=== PATIENT | male | born 1965 | race African-American/Black ===

== ENCOUNTER → 2016-11-26 07:56 | Outpatient (CLI) | payer BC | END | disposition home or self-care (01) | LOC: D.US 11-23 08:00 | DX: R10.9 Unspecified abdominal pain (principal) ==

== ENCOUNTER → 2017-11-08 13:25 | Outpatient (CLI) | payer BC ==
[~2017-11-08 13:25] MED LIST: HYDROCODONE-APA1 TAB PO; LISINOPRIL10 MG PO; LISINOPRIL2.5 MG PO; NORVASC10 MG; NORVASC10 MG PO; ROCEPHIN 2 GM/D52 G1 IV
[2017-11-08 18:05] LABS: NEUT - BF 100 %
[2017-11-09 01:16] VITALS: BMI 34.2
== END | disposition home or self-care (01) ==
LOC: D.LABREF 13:25
PROVIDERS: Orthopaedic Surgery
DX: M25.562 Pain in left knee (principal)

== ENCOUNTER 2017-11-08 20:32 | Inpatient (IN) | payer BC ==
[~2017-11-08] VITALS: Ht 172.7 cm; Wt 102.3 kg
--- NOTE | ~2017-11-08 | EC ---
PATIENT:LEONILA RAGSDALE DATE OF SERVICE: 11/08/17 SEX: M MEDICAL RECORD: [id number] DATE OF : 67 LOCATION:[facility] AGE OF PATIENT: 52 ADMISSION DATE: 11/08/17 REFERRING PHYSICIAN: INTERPRETING PHYSICIAN: SOPHIE TAYLOR MD ECHOCARDIOGRAM REPORT ECHO CHARGES 4 ECHO COMPLETE Date: 11/10 CLINICAL DIAGNOSIS: EKG CHANGES ECHOCARDIOGRAPHIC MEASUREMENTS (adult normal given) AC root (d.<3.7cm) 4.0 cm LV Septum d (<1.2 cm> 1.3 cm Valve Excursion 2.5 cm LV Septum (systole) 2.0 cm Left Atria (s.<4.0cm> 4.2 cm LVPW d(<1.2cm) 1.4 cm RV (d.<2.3cm) 2.7 cm LVPW (sytole) 2.2 cm LV diastole(<5.6CM) 7.0 cm MV E-F(>70mm/sec) cm LV systole 4.0 cm LVOT Diameter 2.2 cm MV exc.(>10mm) cm Est.ejection fraction (50-75%) % DOPPLER: LVIT cm/sec A 56.0 cm/sec E 80.0 cm/sec LA cm/sec RVSP 23.4 mmHg LVOT 127 cm/sec AOP1/2T m/s Asc. Ao 136 cm/sec RVOT 72.0 cm/sec RA cm/sec PA 102 cm/sec AV Gradient Peak 7.4 mmHg AV Mean 3.6 mmHg AV Area 3.7 cm MV Gradient Peak 3.1 mmHg MV Mean 1.1 mmHg MV Area cm COMMENTS: Watch Assembly Inspector: 1 MIRTA PRESTONOE Demographic Analyst: 4 Dr. Taylor TAPE# PACS Pericardial Effusion N DATE OF SERVICE: PROCEDURE: Transthoracic echocardiogram. FINDINGS: 1. Left ventricle is normal size, shape, structure, and function, ejection fraction 60%. 2. The left atrium is normal. 3. The aortic valve is normal. 4. The mitral valve is normal. ECHOCARDIOGRAM REPORT [id number] LEONILA RAGSDALE 5. The tricuspid valve is normal. 6. The right ventricle is normal. The right atrium is normal. 7. The pulmonic valve is normal. 8. Inflow characteristics are normal. CONCLUSIONS: This is a normal echocardiogram for the patient's stated age. TRANSINT:[id number] Voice Confirmation ID: [id number] DOCUMENT ID: [id number] SOPHIE TAYLOR MD at 1702 CC: [id number] DICTATION DATE: 11/11/17 0748 CAMP ASSISTANT: 11/11/17 1115 ADM IN [facility] [address] [id number]
--- NOTE | ~2017-11-08 | HP ---
PATIENT: LEONILA RAGSDALE MEDICAL RECORD: [id number] ACCOUNT: [id number] LOCATION:[facility] : 67 ADMISSION DATE: 11/08/17 HISTORY AND PHYSICAL EXAMINATION DATE OF ADMISSION: 11/08/2017 CHIEF COMPLAINT: Pain in the left knee. HISTORY OF PRESENT ILLNESS: The patient is a 52-year-old -[place] male, who states that in December of this past year, he developed redness as well as swelling in the left knee. This over time did resolve, but over the past week, he has had the recurrence of the swelling as well as the redness, heat, unable to ambulate. He states he worked Saturday and Saturday, was off Saturday, took off and Saturday. He is seen routinely by Dr. Pak. Dr. Pak did see the patient yesterday, referred him to orthopedist. Apparently, he had left knee aspiration, was found later to go to the Emergency Room for possible diagnosis of left septic knee. PAST MEDICAL HISTORY: His past history is significant that he has had hypertension. He has got chronic hepatitis C, hyperlipidemia, secondary polycythemia, obstructive sleep apnea, BPH. FAMILY HISTORY: Father recently at 78 years of age from heart disease. Mother apparently is living, is on home O2. SOCIAL HISTORY: Born and raised in [place]. He has lived in [place] 20+ years. 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 He is not . He is the father of one. ALLERGIES: None. SOCIAL HISTORY: The patient states he is a pack a day smoker and has been so. He had been a drinker until 1998, at which time he had stopped. MEDICATIONS: Include amlodipine 10 mg 1 p.o. every day, hydrocodone 10/325 which was started on the 25th one p.o. every 4 hours p.r.n. pain, lisinopril 10 mg 1 p.o. every day, ProAir 90 mcg 2 puffs every 4 hours p.r.n. shortness of breath, sildenafil 100 mg 1 hour prior to intercourse. REVIEW OF SYSTEMS: CONSTITUTIONAL: He denies any headaches, seizure, or syncope. He denies change in visual or auditory acuity. PULMONARY: He denies any shortness of breath, cough or congestion, history of TB, asthma or bronchitis. CARDIOVASCULAR: He has had no chest pain, palpitation, PND or orthopnea. GASTROINTESTINAL: No chronic nausea, vomiting, melena or hematochezia. GENITOURINARY: No urgency, frequency, or dysuria. PHYSICAL EXAMINATION: GENERAL: He is alert. He is oriented times 3. Very pleasant male, who is in no acute distress. HEENT: Unremarkable. NECK: Supple. There is no adenopathy. HEART: Has a regular rate and rhythm without any murmurs, gallops, or rubs. HISTORY AND PHYSICAL [id number] LEONILA RAGSDALE LUNGS: Clear. ABDOMEN: Soft. Bowel sounds are positive. No organomegaly. EXTREMITIES: The patient does have edema as well as warmth over the left knee with limited range of motion. There is no obvious abscess that can be appreciated. No puncture wound. ASSESSMENT: 1. Probable septic knee, status post left knee aspiration, awaiting cultures. 2. Hypertension, obesity. PLAN: The patient is admitted, started on vancomycin as well as Zosyn. Orthopedic consultation is obtained. TRANSINT:[id number] Voice Confirmation ID: [id number] DOCUMENT ID: [id number] SHYAM MERCHANT MD at 1005 CC: [id number] DICTATION DATE: 11/09/17 0747 PROJECT ADMINISTRATOR: 11/09/17 0835 ADM IN [id number] [place] [address]
--- NOTE | ~2017-11-08 | MORECARE ---
CASE MANAGEMENT DISCHARGE SUMMARY PATIENT: LEONILA RAGSDALE UNIT: [id number] ADM DATE: 11/08/17 AGE: 52 : 67 SEX: M ROOM/BED: D.2207 AUTHOR: CASE, MICA MACHINE OPERATOR PHYSICIAN: REFERRING PHYSICIAN: EUNICE CAMILO DO DATE OF SERVICE: 11/08/17 Discharge Plan Patient Name: LEONILA RAGSDALE [facility] [facility] 1965 Planned Disposition: Home with Home Health Anticipated Discharge Date: Discharge Date: Expected LOS: Initial Reviewer: [email or web address] Initial Review Date: 11/08/2017 Generated: 11/13/17 1:51 pm DCPIA - Discharge Planning Initial Assessment Updated by [email or web address]: Dulce Maria Sorenson on 11/13/17 12:49 pm * Is the patient Alert and Oriented? Yes * How many steps to enterexit or inside your home? * PCP [facility] * [facility] * Preadmission Environment Home with Family * ADLs Independent * Equipment Crutch * List name and contact numbers for known caregivers / representatives who currently or will assist patient after discharge: JUANCHO KHAN () * Verbal permission to speak to the caregivers and representatives has been obtained from the patient. Yes * Community resources currently utilized None * Additional services required to return to the preadmission environment? Yes * Can the patient safely return to the preadmission environment? Yes * Has this patient been hospitalized within the prior 30 days at any hospital? No Patient Name: LEONILA RAGSDALE Page [id number] All edits/amendments must be made on the electronic document DICTATION DATE: 11/13/17 1250 NURSE DISCHARGE: 11/13/17 1250 RPT#: [id number] DC DATE: STATUS: ADM IN [facility] [address] [place] [address] END OF REPORT
[2017-11-08] MEDS ORDERED: LISINOPRIL2.5 MG PO (21:01)
[2017-11-08] MEDS ORDERED: NORVASC10 MG (21:01)
[2017-11-08 21:33] LABS: BASOPHILS 0.2 % (0-2); EOSINOPHILS 4.9 % (0-7); HEMATOCRIT 42.1 % (42.0-54.0); HEMOGLOBIN 14.5 g/dL (13.5-17.5); IMMATURE GRANULOCYTES 0.2 % (0-5); LYMPHOCYTES 35.9 % (15-50); MCH 26.6 pg (26.0-34.0); MCHC 34.4 g/dL (31.0-37.0); MCV 77.2 fL (80.0-100.0); MEAN PLATELET VOLUME 10.4 fL (7.4-10.4); NEUTROPHILS 47.8 % (40-80); RBC 5.45 10x6/uL (4.20-6.10); WBC 6.3 10x3/uL (4.8-10.8)
[2017-11-08 21:35] LABS: PLATELET COUNT 182 10x3/uL (130-400)
[2017-11-08 22:01] LABS: ALBUMIN 3.4 g/dL (3.4-5.0); ALKALINE PHOSPHATASE 54 U/L (46-116); ALT (SGPT) 22 U/L (10-68); BILIRUBIN - TOTAL 0.28 mg/dL (0.2-1.3); C-REACTIVE PROTEIN 15.7 mg/dL (0.0-0.9); CALC OSMOLALITY 279 mosm/kg (275-300); CALCIUM 8.8 mg/dL (8.5-10.1); CARBON DIOXIDE 28.9 mmol/L (21.0-32.0); CHLORIDE - SERUM 104 mmol/L (98-107); CREATININE - SERUM 1.1 mg/dL (0.6-1.3); GLUCOSE 121 mg/dL (74-106); PROTEIN - SERUM 7.4 g/dL (6.4-8.2); SODIUM 139 mmol/L (136-145); UREA NITROGEN 15 mg/dL (7-18); eGFR NON AFRICAN AMERICAN 75 mL/min (90-120)
[2017-11-09 01:16] VITALS: BP 119/83; Ht 172.7 cm; Wt 102.3 kg
[2017-11-09 04:57] VITALS: BP 108/64
[2017-11-09 08:49] VITALS: BP 129/81
[2017-11-09 14:41] VITALS: BP 140/101
[2017-11-09 16:57] VITALS: BP 98/66
[2017-11-09 19:00] LABS: CREATINE KINASE 394 UL (21-232)
[2017-11-09 19:07] LABS: TROPONIN-I < 0.017 ng/mL (0.000-0.060)
[2017-11-09 20:30] VITALS: BP 138/84
[2017-11-09 23:07] LABS: CKMB 1.1 U/L (0.0-3.6); CREATINE KINASE 337 UL (21-232)
[2017-11-09 23:09] LABS: TROPONIN-I < 0.017 ng/mL (0.000-0.060)
[2017-11-10 04:30] VITALS: BP 157/92
[2017-11-10 05:33] LABS: BASOPHILS 0.2 % (0-2); EOSINOPHILS 3.4 % (0-7); HEMATOCRIT 38.9 % (42.0-54.0); HEMOGLOBIN 12.8 g/dL (13.5-17.5); LYMPHOCYTES 29.1 % (15-50); MCH 25.7 pg (26.0-34.0); MCHC 32.9 g/dL (31.0-37.0); MCV 78.1 fL (80.0-100.0); MEAN PLATELET VOLUME 10.9 fL (7.4-10.4); NEUTROPHILS 59.3 % (40-80); PLATELET COUNT 196 10x3/uL (130-400); RBC 4.98 10x6/uL (4.20-6.10); RDW 15.7 % (11.5-14.5)
[2017-11-10 06:19] LABS: CALC OSMOLALITY 278 mosm/kg (275-300); CALCIUM 8.2 mg/dL (8.5-10.1); CHLORIDE - SERUM 102 mmol/L (98-107); CKMB 1.2 U/L (0.0-3.6); CREATINE KINASE 323 UL (21-232); CREATININE - SERUM 1.2 mg/dL (0.6-1.3); GLUCOSE 98 mg/dL (74-106); POTASSIUM - SERUM 4.5 mmol/L (3.5-5.1); SODIUM 139 mmol/L (136-145); UREA NITROGEN 14 mg/dL (7-18); eGFR NON AFRICAN AMERICAN 68 mL/min (90-120)
[2017-11-10 06:20] LABS: TROPONIN-I < 0.017 ng/mL (0.000-0.060)
[2017-11-10 09:10] VITALS: BP 119/74
[2017-11-10 14:32] VITALS: BP 128/77
[2017-11-10 17:00] VITALS: BP 114/69
[2017-11-10 21:05] VITALS: BP 139/94
[2017-11-11 05:05] LABS: BASOPHILS 0.1 % (0-2); EOSINOPHILS 3.4 % (0-7); HEMATOCRIT 37.8 % (42.0-54.0); HEMOGLOBIN 12.8 g/dL (13.5-17.5); LYMPHOCYTES 22.6 % (15-50); MCHC 33.9 g/dL (31.0-37.0); MCV 76.8 fL (80.0-100.0); MEAN PLATELET VOLUME 10.2 fL (7.4-10.4); MONOCYTES 11.4 % (2-11); NEUTROPHILS 62.5 % (40-80); PLATELET COUNT 221 10x3/uL (130-400); RBC 4.92 10x6/uL (4.20-6.10); RDW 15.8 % (11.5-14.5); WBC 6.8 10x3/uL (4.8-10.8)
[2017-11-11 05:34] LABS: CALC OSMOLALITY 269 mosm/kg (275-300); CALCIUM 8.8 mg/dL (8.5-10.1); CARBON DIOXIDE 29.2 mmol/L (21.0-32.0); CHLORIDE - SERUM 100 mmol/L (98-107); GLUCOSE 106 mg/dL (74-106); POTASSIUM - SERUM 4.5 mmol/L (3.5-5.1); SODIUM 136 mmol/L (136-145); eGFR NON AFRICAN AMERICAN 84 mL/min (90-120)
[2017-11-11 05:37] LABS: UREA NITROGEN 8 mg/dL (7-18)
[2017-11-11 06:35] VITALS: BP 154/93
[2017-11-11 09:12] VITALS: BP 114/73
[2017-11-11 12:52] VITALS: BP 111/71
[2017-11-11 22:53] VITALS: BP 116/60
[2017-11-12 05:06] LABS: BASOPHILS 0.1 % (0-2); HEMATOCRIT 37.3 % (42.0-54.0); HEMOGLOBIN 12.6 g/dL (13.5-17.5); IMMATURE GRANULOCYTES 0.3 % (0-5); LYMPHOCYTES 28.3 % (15-50); MCHC 33.8 g/dL (31.0-37.0); MCV 76.9 fL (80.0-100.0); MEAN PLATELET VOLUME 10.8 fL (7.4-10.4); MONOCYTES 10.8 % (2-11); NEUTROPHILS 57.5 % (40-80); PLATELET COUNT 195 10x3/uL (130-400); RBC 4.85 10x6/uL (4.20-6.10); RDW 15.6 % (11.5-14.5)
[2017-11-12 05:21] VITALS: BP 115/70
[2017-11-12 05:38] LABS: CALC OSMOLALITY 268 mosm/kg (275-300); CALCIUM 8.7 mg/dL (8.5-10.1); CHLORIDE - SERUM 101 mmol/L (98-107); GLUCOSE 109 mg/dL (74-106); SODIUM 135 mmol/L (136-145); UREA NITROGEN 8 mg/dL (7-18); eGFR NON AFRICAN AMERICAN 84 mL/min (90-120)
[2017-11-12 08:37] VITALS: BP 150/98
[2017-11-12 12:29] VITALS: BP 100/66
[2017-11-12 16:35] VITALS: BP 144/98
[2017-11-13 00:34] VITALS: BP 113/68
[2017-11-13 00:55] VITALS: BP 113/68
[2017-11-13 04:52] LABS: C-REACTIVE PROTEIN 17.4 mg/dL (0.0-0.9); CALC OSMOLALITY 274 mosm/kg (275-300); CALCIUM 8.8 mg/dL (8.5-10.1); CARBON DIOXIDE 31.7 mmol/L (21.0-32.0); CHLORIDE - SERUM 102 mmol/L (98-107); GLUCOSE 108 mg/dL (74-106); POTASSIUM - SERUM 3.8 mmol/L (3.5-5.1); SODIUM 138 mmol/L (136-145); UREA NITROGEN 8 mg/dL (7-18); eGFR NON AFRICAN AMERICAN 84 mL/min (90-120)
[2017-11-13 05:46] LABS: ERYTHROCYTE SEDIMENTATION RATE 48 mm/hr (0-20)
[2017-11-13 06:12] VITALS: BP 135/89
[2017-11-13 08:48] VITALS: BP 127/73
[2017-11-13 16:20] VITALS: BP 106/67
[2017-11-13] MEDS ORDERED: HYDROCODONE-APA1 TAB PO (16:35)
[2017-11-13] MEDS ORDERED: LISINOPRIL10 MG PO (17:28)
[2017-11-13] MEDS ORDERED: NORVASC10 MG PO (17:28)
[2017-11-13] MEDS ORDERED: ROCEPHIN 2 GM/D52 G1 IV (17:44)
== END 2017-11-13 19:10 | disposition home health service (06) | DRG 489 ==
LOC: D.ER 20:32 → D.MS 22:43 → D.EDHOLD 22:43 → D.MS 22:48
PROVIDERS: Family Medicine; Internal Medicine Cardiovascular Disease; Orthopaedic Surgery; Student in an Organized Health Care Education/Training Program
PROC: 0SBD4ZZ Excision of Left Knee Joint, Percutaneous Endoscopic Approach (ICD-10-PCS; principal; 2017-11-09 12:00)
PROC: 0MNP4ZZ Release Left Knee Bursa and Ligament, Percutaneous Endoscopic Approach (ICD-10-PCS; 2017-11-09 12:00)
PROC: 0SQD4ZZ Repair Left Knee Joint, Percutaneous Endoscopic Approach (ICD-10-PCS; 2017-11-09 12:00)
PROC: 05HB33Z Insertion of Infusion Device into Right Basilic Vein, Percutaneous Approach (ICD-10-PCS; 2017-11-13)
PROC: B54MZZA Ultrasonography of Right Upper Extremity Veins, Guidance (ICD-10-PCS; 2017-11-13)
DX: M00.9 Pyogenic arthritis, unspecified (principal); I10 Essential (primary) hypertension; S83.282A Other tear of lateral meniscus, current injury, left knee, initial encounter; S83.242A Other tear of medial meniscus, current injury, left knee, initial encounter; X58.XXXA Exposure to other specified factors, initial encounter; M65.862 Other synovitis and tenosynovitis, left lower leg; G47.33 Obstructive sleep apnea (adult) (pediatric); D75.1 Secondary polycythemia; K75.9 Inflammatory liver disease, unspecified; R94.31 Abnormal electrocardiogram [ECG] [EKG]; E78.5 Hyperlipidemia, unspecified; E66.9 Obesity, unspecified; Z68.34 Body mass index [BMI] 34.0-34.9, adult; N40.0 Benign prostatic hyperplasia without lower urinary tract symptoms; M17.12 Unilateral primary osteoarthritis, left knee

== ENCOUNTER → 2017-11-18 11:04 | Outpatient (CLI) | payer BC ==
[2017-11-09 01:16] VITALS: BMI 34.2
[2017-11-18 12:31] LABS: C-REACTIVE PROTEIN 10.9 mg/dL (0.0-0.9); CREATININE - SERUM 0.9 mg/dL (0.6-1.3)
[2017-11-18 13:22] LABS: BASOPHILS 0.1 % (0-2); EOSINOPHILS 3.7 % (0-7); HEMATOCRIT 39.5 % (42.0-54.0); HEMOGLOBIN 13.2 g/dL (13.5-17.5); IMMATURE GRANULOCYTES 0.3 % (0-5); LYMPHOCYTES 22.5 % (15-50); MCH 26.1 pg (26.0-34.0); MCHC 33.4 g/dL (31.0-37.0); MCV 78.1 fL (80.0-100.0); MEAN PLATELET VOLUME 10.2 fL (7.4-10.4); MONOCYTES 5.1 % (2-11); NEUTROPHILS 68.3 % (40-80); RBC 5.06 10x6/uL (4.20-6.10); RDW 15.7 % (11.5-14.5); WBC 7.6 10x3/uL (4.8-10.8)
[2017-11-18 13:28] LABS: PLATELET COUNT 441 10x3/uL (130-400)
[2017-11-18 13:48] LABS: ERYTHROCYTE SEDIMENTATION RATE 19 mm/hr (0-20)
== END | disposition home or self-care (01) ==
LOC: D.LABREF 11:04
PROVIDERS: Student in an Organized Health Care Education/Training Program
DX: M00.862 Arthritis due to other bacteria, left knee (principal)

== ENCOUNTER → 2017-11-25 13:01 | Outpatient (CLI) | payer BC ==
[2017-11-09 01:16] VITALS: BMI 34.2
[2017-11-25 14:50] LABS: BASOPHILS 0.4 % (0-2); EOSINOPHILS 6.2 % (0-7); HEMATOCRIT 40.9 % (42.0-54.0); HEMOGLOBIN 13.6 g/dL (13.5-17.5); IMMATURE GRANULOCYTES 0.2 % (0-5); LYMPHOCYTES 35.3 % (15-50); MCH 25.5 pg (26.0-34.0); MCHC 33.3 g/dL (31.0-37.0); MCV 76.6 fL (80.0-100.0); MEAN PLATELET VOLUME 10.1 fL (7.4-10.4); MONOCYTES 6.9 % (2-11); PLATELET COUNT 499 10x3/uL (130-400); RBC 5.34 10x6/uL (4.20-6.10); RDW 15.6 % (11.5-14.5); WBC 5.4 10x3/uL (4.8-10.8)
[2017-11-25 15:26] LABS: C-REACTIVE PROTEIN 4.1 mg/dL (0.0-0.9)
[2017-11-25 15:52] LABS: ERYTHROCYTE SEDIMENTATION RATE 18 mm/hr (0-20)
== END | disposition home or self-care (01) ==
LOC: D.LABREF 13:01
PROVIDERS: Student in an Organized Health Care Education/Training Program
DX: M00.9 Pyogenic arthritis, unspecified (principal)

== ENCOUNTER → 2017-11-29 14:04 | Outpatient (CLI) | payer BC ==
[2017-11-09 01:16] VITALS: BMI 34.2
[2017-11-29 15:30] LABS: EOS BF 2 %; MACROPHAGES BF 2 %; NEUT - BF 85 %
== END | disposition home or self-care (01) ==
LOC: D.LABREF 14:04
PROVIDERS: Orthopaedic Surgery
DX: M25.562 Pain in left knee (principal)

== ENCOUNTER → 2017-12-02 13:59 | Outpatient (CLI) | payer BC ==
[2017-11-09 01:16] VITALS: BMI 34.2
[2017-12-02 16:11] LABS: BASOPHILS 0.2 % (0-2); EOSINOPHILS 3.2 % (0-7); HEMATOCRIT 39.4 % (42.0-54.0); HEMOGLOBIN 13.1 g/dL (13.5-17.5); IMMATURE GRANULOCYTES 0.2 % (0-5); LYMPHOCYTES 37.5 % (15-50); MCH 25.5 pg (26.0-34.0); MCHC 33.2 g/dL (31.0-37.0); MCV 76.8 fL (80.0-100.0); MEAN PLATELET VOLUME 10.5 fL (7.4-10.4); MONOCYTES 7.5 % (2-11); NEUTROPHILS 51.4 % (40-80); RBC 5.13 10x6/uL (4.20-6.10); RDW 15.7 % (11.5-14.5); WBC 5.3 10x3/uL (4.8-10.8)
[2017-12-02 16:17] LABS: PLATELET COUNT 297 10x3/uL (130-400)
[2017-12-02 16:33] LABS: C-REACTIVE PROTEIN 0.8 mg/dL (0.0-0.9); CREATININE - SERUM 1.2 mg/dL (0.6-1.3)
[2017-12-02 17:17] LABS: ERYTHROCYTE SEDIMENTATION RATE 5 mm/hr (0-20)
== END | disposition home or self-care (01) ==
LOC: D.LABREF 13:59
PROVIDERS: Student in an Organized Health Care Education/Training Program
DX: M00.9 Pyogenic arthritis, unspecified (principal)

== ENCOUNTER → 2017-12-21 15:23 | Outpatient (CLI) | payer BC ==
[2017-11-09 01:16] VITALS: BMI 34.2
[2017-12-21 16:09] LABS: HEMATOCRIT 39.2 % (42.0-54.0); HEMOGLOBIN 13.2 g/dL (13.5-17.5); MCH 26.4 pg (26.0-34.0); MCHC 33.7 g/dL (31.0-37.0); MCV 78.4 fL (80.0-100.0); MEAN PLATELET VOLUME 10.3 fL (7.4-10.4); PLATELET COUNT 146 10x3/uL (130-400); WBC 4.4 10x3/uL (4.8-10.8)
[2017-12-21 16:35] LABS: EOSINOPHILS 8 % (0-7); LYMPHOCYTES 51 % (15-50); MONOCYTES 2 % (2-11); NEUTROPHILS 39 % (40-80); PLATELET ESTIMATE NORMAL; POIKILOCYTOSIS OCC; POLYCHROMASIA 1+; ROULEAUX OCC
[2017-12-21 17:11] LABS: ERYTHROCYTE SEDIMENTATION RATE 1 mm/hr (0-20)
== END | disposition home or self-care (01) ==
LOC: D.LAB 15:23
PROVIDERS: Orthopaedic Surgery
DX: M25.561 Pain in right knee (principal)